=== PATIENT | male | born 1960 | race Caucasian/White ===

== ENCOUNTER 2017-02-06 23:07 | Inpatient (IN) | payer OTHER ==
--- NOTE | 2017-02-06 23:50 | PDOC ---
Attending Attestation - Resident Resident Name: Kandi Lew <Minerva Vega I - Last Filed: 02/06/17 23:49> - HPI HPI: 02/06/17 23:54 The patient is a 56 year old male who presents to the ED after being sent in by his PCP for evaluation of fevers. He was prescribed ciprol two days ago for acute prostatitis. Patient has a history of renal colic and past kidney stones. He denies any flank or back pain. He is able to tolerate PO. - Physicial Exam PE: 02/06/17 23:55 Abdomen: No tenderness over suprapubic area. Soft, normal bowel sounds. Musculoskeletal: No tenderness or pain on percussion of CVA area, back, or flank. - Medical Decision Making 02/07/17 02:49 DATE OF SERVICE: 2017-02-07 00:05:48 IMAGES: [id number] EXAM: CT ABDOMEN AND PELVIS WITHOUT CONTRAST TECHNIQUE: Axial images from the lung bases through the symphysis pubis with multi-planar reconstructions from the axial data set. Oral contrast: No. HISTORY: Nephrolithiasis. COMPARISON: None. FINDINGS: Lung bases are clear. Small hiatal hernia is present. Kidneys show no focal stones. Right kidney may contain a vague 0.6 cm hypodensity posteriorly, too small to characterize. No hydronephrosis. No ureteral stones. No bladder calculi. Liver is enlarged at 18.1 cm in length. Spleen is enlarged at 14.3 cm in length. Gallbladder is contracted. Pancreas and adrenal glands are unremarkable. Evaluation for parenchymal organ pathology is limited on non contrast imaging. Aorta is normal in caliber with no significant atherosclerosis. No lymphadenopathy based on size criteria. Distal sigmorectal nondistention or mild wall thickening may be present. Appendix is negative. Tiny fatty umbilical hernia is present. No free intraperitoneal fluid or gas. Spine shows mild scattered degenerative change. Right inguinal surgical changes are present. Prostate contains small calcifications. Bladder is decompressed. IMPRESSION: 1. No renal or ureteral stones. No hydronephrosis. Vague 0.6 cm hypodensity posteriorly in the right kidney could represent a cyst, but is too small to characterize on this noncontrast study. 2. Hepatosplenomegaly. 3. Sigmorectal wall nondistention or subtle infectious or inflammatory colitis. 4. Small hiatal hernia. 02/07/17 05:[address] Garcia who wants patient held in ED overnight. He will reevaluate the patient in the morning regarding admission vs discharge home. <Edmond Lubin - Last Filed: 02/07/17 05:43> Heart Score/ECG Review #1 ECG reviewed & interpreted by me at: 23:55 02/07/17 00:00 Vent rate 84 bpm OK interval 158 ms QRS duration 104 ms QT/QTc 364/430 ms P-R-T axes 52 26 38 Normal sinus rhythm. Normal ECG. <Edmond Lubin - Last Filed: 02/07/17 05:43>
[2017-02-07 00:02] LABS: BASOPHIL 0.1 % (0-2.0); EOSINOPHIL 0.4 % (0-4.5); MCH 30.3 pg (25.7-33.7); MCHC 34.9 g/dl (32.0-35.9); MEAN CELL VOLUME 86.6 fl (80-96); NEUTROPHILS 79.2 % (42.8-82.8); RDW 13.2 % (11.9-15.9); WHITE BLOOD COUNT 3.5 K/mm3 (4.0-10.0)
[2017-02-07 00:05] LABS: URINE APPEARANCE CLEAR; URINE BILIRUBIN NEGATIVE (NEGATIVE); URINE BLOOD 1+ (NEGATIVE); URINE COLOR AMBER; URINE GLUCOSE (UA) NEGATIVE (NEGATIVE); URINE KETONE NEGATIVE (NEGATIVE); URINE LEUK ESTERASE NEGATIVE (NEGATIVE); URINE NITRITE NEGATIVE (NEGATIVE); URINE UROBILINOGEN 4.0 E.U/dl mg/dL (0.2-1.0)
[2017-02-07 00:11] LABS: URINE PROTEIN 2+ (NEGATIVE)
[2017-02-07 00:14] LABS: INR 1.26 (0.82-1.09); PROTHROMBIN TIME (PATIENT) 13.9 SEC (9.98-11.88)
[2017-02-07 00:17] LABS: ACTIVATED PTT 30.7 SECONDS (26.9-34.4); URINE MUCUS MODERATE; URINE RBC 18 /hpf (0-3); URINE WBC 6 /hpf (3-5)
[2017-02-07 00:27] LABS: ALBUMIN 3.2 g/dl (3.4-5.0); ALK PHOS 143 U/L (45-117); ANION GAP 10 (8-16); BILIRUBIN,TOTAL 1.1 mg/dL (0.2-1.0); CALCIUM 8.2 mg/dL (8.5-10.1); CO2 25 mmol/L (21-32); CREATININE 0.7 mg/dL (0.7-1.3); GLUCOSE,RANDOM 135 mg/dL (74-106); SGOT/AST 78 U/L (15-37); SGPT/ALT 84 U/L (12-78); TOT PROT 6.7 g/dl (6.4-8.2)
[2017-02-07] MEDS ORDERED: SODIUM CHLORIDE 500 ML IV STA (00:59)
[2017-02-07 02:12] LABS: MEAN PLT VOLUME 7.5 fl (7.5-11.1); PLATELET COUNT 82 K/MM3 (134-434); PLATELET ESTIMATE SLT DECREASED (NORMAL)
[2017-02-07] MEDS ORDERED: CEFTRIAXONE 2 GM in DEXTROSE 5%-WATER - 100 ML IVPB ONE (02:48)
[2017-02-07] MEDS ORDERED: CEFTRIAXONE 100 ML IVPB ONE (03:05)
[2017-02-07] MEDS ORDERED: ACETAMINOPHEN 1000 MG/100 ML VIAL (NON FORMULARY) IVPB ONE (05:30)
[2017-02-07] MEDS ORDERED: ACETAMINOPHEN 325 MG TABLET (FP) PO PRN (05:30)
[2017-02-07] MEDS ORDERED: ACETAMINOPHEN INJECTION 100 ML IVPB ONE (06:08)
--- NOTE | 2017-02-07 06:20 | PDOC ---
History of Present Illness - General Chief Complaint: Urinary Problem Stated Complaint: INFECTION (PCP SENT) Time Seen by Provider: 02/06/17 23:16 History Source: Patient, Spouse Exam Limitations: No Limitations - History of Present Illness Initial Comments: 56yo M with PMH of nephrolithiasis, idiopathic thrombocytopenia, prostatitis presents c/o fevers. On Wednesday (3 days ago) pt went to Urologist (Dr. Ricks) who diagnosed acute prostatitis and prescribed Cipro 500mg BID. Pt has been compliant with Cipro, but has been experiencing ongoing fevers. Pt took Tylenol 500mg which would relieve symptoms for 2-3hrs. Pt took Motrin 800mg at 6pm today and last dose of Tylenol was at 9pm. Pt reports Tmax of 103F at 10pm (1 hour prior to arrival in the ER). Pt also c/o rigors with fever today. Pt was advised by his PCP (Dr. Garcai) to come to the ER. Pt denies pain, sob, palpitations. 02/07/17 06:12 Past History - Past Medical History Allergies/Adverse Reactions: Allergies Allergy/AdvReac Type Severity Reaction Status Date / Time No Known Allergies Allergy Verified 02/06/17 23:14 Home Medications: Ambulatory Orders Levothyroxine [Synthroid -] 125 mcg PO DAILY 07/05/15 Atorvastatin Ca [Lipitor] 10 mg PO HS 02/06/17 Anemia: No Asthma: No Cancer: No Cardiac Disorders: No CVA: No COPD: No CHF: No Dementia: No Diabetes: No GI Disorders: No Disorders: Yes (HX KIDNEY STONE) HTN: No Hypercholesterolemia: Yes Liver Disease: No Seizures: No Thyroid Disease: Yes Other medical history: idiopathic thrombocytopenia - Surgical History Orthopedic Surgery: Yes (ARTHROSCOPY) - Psycho/Social/Smoking Cessation Hx Anxiety: No Suicidal Ideation: No Smoking Status: Yes Smoking History: Former smoker Have you smoked in the past 12 months: Yes Number of Cigarettes Smoked Daily: 5 Information on smoking cessation initiated: No 'Breaking Loose' booklet given: 12/04/15 Hx Alcohol Use: No Drug/Substance Use Hx: No Substance Use Type: None Review of Systems - Review of Systems Constitutional: Yes: Chills, Diaphoresis, Fever HEENTM: No: Recent change in vision, Ear Pain, Nose Pain, Nose Congestion, Throat Pain Respiratory: No: Cough, Orthopnea, Shortness of Breath, Stridor, Wheezing Cardiac (ROS): No: Chest Pain, Edema, Irregular Heart Rate, Lightheadedness, Palpitations, Chest Tightness ABD/GI: No: Abdominal Distended, Constipated, Diarrhea, Nausea, Vomiting, Abdominal cramping : Yes: Burning (diminished since Wednesday) Integumentary: No: Bruising, Flushing, Rash Neurological: No: Headache, Unsteady Gait, Dizziness *Physical Exam - Vital Signs Last Vital Signs Temp Pulse Resp BP Pulse Ox 98.7 F 68 17 111/69 98 02/07/17 03:10 02/07/17 03:10 02/07/17 03:10 02/07/17 03:10 02/07/17 03:10 - Physical Exam General Appearance: Yes: Nourished, Appropriately Dressed. No: Mild Distress HEENT: positive: EOMI, Normal Voice, Other (moist mucous membranes). negative: Pale Conjunctivae, Scleral Icterus (R), Scleral Icterus (L), Nasal Congestion, Rhinorrhea Neck: positive: Trachea midline, Supple Respiratory/Chest: positive: Lungs Clear, Normal Breath Sounds. negative: Respiratory Distress, Accessory Muscle Use Cardiovascular: positive: Regular Rhythm, Regular Rate, S1, S2. negative: Murmur Gastrointestinal/Abdominal: positive: Soft. negative: Distended, Guarding, Rebound, Tenderness Musculoskeletal: positive: Normal Inspection. negative: CVA Tenderness, Decreased Range of Motion Extremity: positive: Normal Inspection. negative: Swelling, Calf Tenderness, Erythema Integumentary: positive: Normal Color, Warm, Diaphoresis Neurologic: positive: Fully Oriented, Alert, Normal Mood/Affect, Normal Response , Motor Strength 5/5 ED Treatment Course - LABORATORY CBC & Chemistry Diagram: 02/07/17 06:20 02/06/17 23:48 - ADDITIONAL ORDERS Additional order review: Laboratory Results 02/06/17 02/06/17 02/06/17 23:48 23:48 23:48 PT with INR 13.90 H INR 1.26 H PTT (Actin FS) 30.7 Sodium Potassium Chloride Carbon Dioxide Anion Gap BUN Creatinine Creat Clearance w eGFR Random Glucose Lactic Acid 0.8 Calcium Total Bilirubin AST ALT Alkaline Phosphatase Total Protein Albumin Urine Color Urine Appearance Urine pH Urine Protein Urine Glucose (UA) Urine Ketones Urine Blood Urine Nitrite Urine Bilirubin Urine Urobilinogen Urine RBC Urine WBC Ur Epithelial Cells Urine Mucus Blood Type A NEGATIVE Antibody Screen Negative 02/06/17 02/06/17 23:48 23:48 PT with INR INR PTT (Actin FS) Sodium 137 Potassium 3.6 Chloride 102 Carbon Dioxide 25 Anion Gap 10 BUN 16 Creatinine 0.7 D Creat Clearance w eGFR > 60 Random Glucose 135 H D Lactic Acid Calcium 8.2 L Total Bilirubin 1.1 H D AST 78 H D ALT 84 H D Alkaline Phosphatase 143 H D Total Protein 6.7 Albumin 3.2 L Urine Color Jada Urine Appearance Clear Urine pH 5.0 Urine Protein 2+ H Urine Glucose (UA) Negative Urine Ketones Negative Urine Blood 1+ H Urine Nitrite Negative Urine Bilirubin Negative Urine Urobilinogen 4.0 e.u/dl Urine RBC 18 Urine WBC 6 Ur Epithelial Cells Rare Urine Mucus Moderate Blood Type Antibody Screen 02/06/17 23:48 RBC 4.32 MCV 86.6 MCHC 34.9 RDW 13.2 MPV 7.5 Neutrophils % 79.2 D Lymphocytes % 9.4 D Monocytes % 10.9 H Eosinophils % 0.4 Basophils % 0.1 - RADIOLOGY Radiology Studies Ordered: Category Date Time Status ABDOMEN & PELVIS CT W/O CONTR [CT] Stat CT Scan 02/07/17 00:02 Taken - Medications Given in the ED: ED Medications Discontinued Medications Generic Name Dose Route Start Last Admin Trade Name Freq PRN Reason Stop Dose Admin Sodium Chloride 500 mls @ 500 mls/hr 02/07/17 00:59 02/07/17 01:21 Normal Saline - IV 02/07/17 01:58 500 mls/hr ASDIR STA Administration Ceftriaxone Sodium 2 gm/ 100 mls @ 200 mls/hr 02/07/17 02:48 02/07/17 03:10 Dextrose IVPB 02/07/17 03:17 200 mls/hr ONCE ONE Administration Medical Decision Making - Medical Decision Making 56yo M with PMH of nephrolithiasis, idiopathic thrombocytopenia, prostatitis presents c/o fevers x 3 days. Pt diagnosed with acute prostatitis 3 days ago. Pt compliant with Cipro 500mg BID. Pt also c/o rigors with fever today. Tmax 103F 1 hr prior to arrival in ER. Pt diarphoretic upon exam. Temp 101.4F here. NS 500 ml bolus given. F/u temps 98.4F at 1:22, and 98.7 at 3:10. Sepsis on arrival (fever, tachycardia at 102, prostatitis infection) EKG -> NSR CT ab/pelvis non-contrast -> no nephrolithiasis, no hydronephrosis. Hepatosplenomegaly noted. Prostate contains small calcifications. CBC with diff -> WBC 3.5, platelets 82 CMP -> elevated LFTs, may be 2/2 Tylenol taken in the last 3 days INR -> 1.26, may be related to elevated LFTs PTT -> wnl lactic acid -> wnl UA -> +2 protein, +1 blood Case discussed with PCP (Dr. Garcia) who accepted adm. Ceftriaxone 2g IVPB given per Dr. Garcia. 02/07/17 06:24 *DC/Admit/Observation/Transfer Diagnosis at time of Disposition: Fever, Sepsis, Thrombocytopenia - Referrals Referrals: Steven Garcia MD [Primary Care Provider] -
[2017-02-07] MEDS: SODIUM CHLORIDE 1,000 ML IV SCH ×2 (06:21→12:01)
[2017-02-07 06:42] LABS: MCH 30.1 pg (25.7-33.7); MCHC 34.8 g/dl (32.0-35.9); MEAN CELL VOLUME 86.6 fl (80-96); MEAN PLT VOLUME 7.2 fl (7.5-11.1); PLATELET COUNT 81 K/MM3 (134-434); RDW 13.4 % (11.9-15.9); WHITE BLOOD COUNT 3.3 K/mm3 (4.0-10.0)
[2017-02-07 07:08] LABS: ALBUMIN 2.9 g/dl (3.4-5.0); ANION GAP 5 (8-16); BILIRUBIN,TOTAL 0.7 mg/dL (0.2-1.0); CALCIUM 8.4 mg/dL (8.5-10.1); CO2 28 mmol/L (21-32); CREATININE 0.7 mg/dL (0.7-1.3); GLUCOSE,RANDOM 103 mg/dL (74-106); SGOT/AST 73 U/L (15-37); SGPT/ALT 86 U/L (12-78); TOT PROT 6.5 g/dl (6.4-8.2)
[2017-02-07 07:09] LABS: ALK PHOS 140 U/L (45-117)
[2017-02-07] MEDS ORDERED: CEFTRIAXONE 100 ML IVPB SCH (10:00)
--- NOTE | 2017-02-07 10:06 | HP ---
Admitting History and Physical - Primary Care Physician PCP: Steven Garcia - Admission Chief Complaint: FEVERS/CHILLS/ACUTE PROSTATITIS History of Present Illness: 56 Y/O MALE WITH HISTORY OF THROMBOCYTOPENIA, DIAGNOSED WITH ACUTE PROSATITIS 1 WEEK AGO AND STARTED ON CIPRO AND MACROBID STILL HAD FEVERS HIGH 104'. PATIENT REPORTS RIGORS AND WEAKNESS. CT SCAN SHOWED CALCIFIED PROSTATE NO HYDRONEPHROSIS. History Source: Patient - Past Medical History Renal/: Yes: Other Heme/Onc: Yes: Thrombocytopenia - Smoking History Smoking history: Former smoker Have you smoked in the past 12 months: Yes Aproximately how many cigarettes per day: 5 - Alcohol/Substance Use Hx Alcohol Use: No Home Medications - Allergies Allergies/Adverse Reactions: Allergies Allergy/AdvReac Type Severity Reaction Status Date / Time No Known Allergies Allergy Verified 02/06/17 23:14 - Home Medications Home Medications: Ambulatory Orders Levothyroxine [Synthroid -] 125 mcg PO DAILY 07/05/15 Atorvastatin Ca [Lipitor] 10 mg PO HS 02/06/17 Review of Systems - Review of Systems Constitutional: reports: Chills, Diaphoresis, Fever, Lethargy, Loss of Appetite , Night Sweats, Weakness Eyes: reports: No Symptoms HENT: reports: No Symptoms Neck: reports: No Symptoms Cardiovascular: reports: No Symptoms Respiratory: reports: No Symptoms Gastrointestinal: reports: No Symptoms Genitourinary: reports: Discharge, Frequency Musculoskeletal: reports: Extremity Pain, Joint Pain, Muscle Cramps Integumentary: reports: No Symptoms Neurological: reports: No Symptoms Endocrine: reports: No Symptoms Hematology/Lymphatic: reports: No Symptoms Psychiatric: reports: No Symptoms Physical Examination Vital Signs: Vital Signs Temperature 98.7 F 02/07/17 06:47 Pulse Rate 68 02/07/17 06:47 Respiratory Rate 02/07/17 06:47 Blood Pressure 120/78 02/07/17 06:47 O2 Sat by Pulse Oximetry (%) 98 02/07/17 06:47 Constitutional: Yes: Moderate Distress Eyes: Yes: WNL HENT: Yes: WNL Neck: Yes: WNL Cardiovascular: Yes: WNL Respiratory: Yes: WNL Gastrointestinal: Yes: WNL Renal/: Yes: WNL Musculoskeletal: Yes: WNL Extremities: Yes: WNL Edema: No Peripheral Pulses WNL: Yes Integumentary: Yes: WNL Wound/Incision: Yes: Clean/Dry Neurological: Yes: WNL ...Motor Strength: WNL Psychiatric: Yes: WNL Imaging - Results Cat Scan: Report Reviewed Problem List - Problems (1) Fever Code(s): R50.9 - FEVER, UNSPECIFIED (2) Sepsis Code(s): A41.9 - SEPSIS, UNSPECIFIED ORGANISM Qualifiers: Sepsis type: sepsis due to unspecified organism Qualified Code(s): A41.9 - Sepsis, unspecified organism (3) Thrombocytopenia Code(s): D69.6 - THROMBOCYTOPENIA, UNSPECIFIED (4) Acute prostatitis Code(s): N41.0 - ACUTE PROSTATITIS (5) Hepatosplenomegaly Code(s): R16.2 - HEPATOMEGALY WITH SPLENOMEGALY, NOT ELSEWHERE CLASSIFIED Assessment/Plan IV ABX ROCEPHIN CHECK CULTURES LIKELY TO BE NEGATIVE WITH CIPRO AND MACROBID OUTPATIENT OVER 4 DAYS. DECREASE TYLENOL TO MAX 2GM DAILY WITH ELEVATED LFT'S.
--- NOTE | 2017-02-07 10:18 | PN ---
Progress Note (short form) - Note Progress Note: ID consult dictated imp/reccd 56 year old man developed dysuria and fever last Wednesday he saw Urology as an outpt and was placed on cipro fever and chills and rigors developed and he came to ED last night no nausea or vomiting notes cloudy, milky urine that has now improved no diarrhea no travel pmh chronic thrombocytopenia-usually 90 to 100k now with leukopenia, thrombocytopenia, abnl lfts fever, suspected prostatitis, uti on cipro as outpt agree with IVF and rocephin cannot r/o tick borne illness blood smear r/o babesia anaplasma , ehrlichia serology babesia serology lyme titer add doxycycline anemia/thrombocytopenia/abnl lfts d/w Dr Garcia Problem List - Problems (1) Fever Code(s): R50.9 - FEVER, UNSPECIFIED (2) Acute prostatitis Code(s): N41.0 - ACUTE PROSTATITIS (3) Leukopenia Code(s): D72.819 - DECREASED WHITE BLOOD CELL COUNT, UNSPECIFIED (4) Thrombocytopenia Code(s): D69.6 - THROMBOCYTOPENIA, UNSPECIFIED
[2017-02-07] MEDS: DOXYCYCLINE INJECTION 100 MG in DEXTROSE 5%-WATER - 100 ML IVPB SCH ×2 (12:04→21:18)
[2017-02-07] MEDS ORDERED: DEXTROSE 5%-WATER 100 ML IVPB ONE (12:24)
--- NOTE | 2017-02-07 12:50 | CONSULT ---
Consult Consult Specialty:: Hematology/Oncology Reason for Consultation:: Pancytopenia - History of Present Illness Chief Complaint: pancytopenia, burning urination History of Present Illness: is a 56 y/o male with long standing low platelet counts, off and on smoker admitted now with a UTI. Per patient, he was having burning urination as an outpatient, was seen by urology and placed on ciprofloxacin, however he then developed fever and rigors and was admitted last night for treatment of urosepsis. He was placed on IVF and broad spectrum antibiotics with rocephin and doxycycline. We have been consulted to help work-up his pancytopenia. Per patient, he has always had low platelet counts for a few years now and about 5 years ago had a bone marrow biopsy. He is unable to tell me the name of the doctor or if he was diagnosed with any condition post bone marrow biopsies. He is otherwise healthy, works with an [employer], does not drink or use drugs. - History Source History Provided By: Patient Limitations to Obtaining History: No Limitations - Past Medical History Renal/: Yes: Other - Alcohol/Substance Use Hx Alcohol Use: No - Smoking History Smoking history: Former smoker Have you smoked in the past 12 months: Yes Aproximately how many cigarettes per day: 5 Home Medications - Allergies Allergies/Adverse Reactions: Allergies Allergy/AdvReac Type Severity Reaction Status Date / Time No Known Allergies Allergy Verified 02/06/17 23:14 - Home Medications Home Medications: Ambulatory Orders Levothyroxine [Synthroid -] 125 mcg PO DAILY 07/05/15 Atorvastatin Ca [Lipitor] 10 mg PO HS 02/06/17 Review of Systems - Review of Systems Constitutional: reports: No Symptoms, Other (burning urination) Eyes: reports: No Symptoms HENT: reports: No Symptoms Neck: reports: No Symptoms Cardiovascular: reports: No Symptoms Respiratory: reports: No Symptoms Gastrointestinal: reports: No Symptoms Genitourinary: reports: Dysuria Musculoskeletal: reports: No Symptoms Integumentary: reports: No Symptoms Neurological: reports: No Symptoms Endocrine: reports: No Symptoms Hematology/Lymphatic: reports: No Symptoms Psychiatric: reports: No Symptoms Physical Exam Vital Signs: Vital Signs Temperature 98.7 F 02/07/17 06:47 Pulse Rate 68 02/07/17 06:47 Respiratory Rate 02/07/17 06:47 Blood Pressure 120/78 02/07/17 06:47 O2 Sat by Pulse Oximetry (%) 98 02/07/17 06:47 Constitutional: Yes: Well Nourished Eyes: Yes: WNL HENT: Yes: WNL, Atraumatic, Normocephalic Neck: Yes: WNL, Supple, Trachea Midline Cardiovascular: Yes: WNL, Regular Rate and Rhythm Respiratory: Yes: WNL, Regular, CTA Bilaterally Gastrointestinal: Yes: WNL, Normal Bowel Sounds Musculoskeletal: Yes: WNL Extremities: Yes: WNL Neurological: Yes: WNL, Alert, Oriented Assessment/Plan 56 y/o male with long standing pancytopenia and admitted with an UTI - On IVF and antibiotics per ID -recommend working up pancytopenia with following labs : B12, folate, Thyroid panel - viral titres (Hep B and C, HIV) -SPEP/UPEP - Recommend arranging follow-up in Hematology clinic one to weeks after this acute hospitalization to assess counts and re-perform bone marrow biopsy if work -up as suggested is negative -patient is agreeable with this plan -please contact our service at the time of discharge to arrange the appropriate follow-up
--- NOTE | 2017-02-07 15:19 | CON.GI ---
Consult Consult Specialty:: GI Referred by:: Radha Reason for Consultation:: increased LFTs - History of Present Illness Chief Complaint: dysuria and fevers History of Present Illness: 56 M with longstanding h/o thrombocytopenia, admitted with fever and rigors. He had a UTI last week and was treated with po cipro but developed fever and rigors after starting the med. He currently has [id number] elevated LFTs with ALT> AST. On questioning, patient tells me that he is a patient of Dr Mathews and has been seeing him "for years" He states he sees him every 6 months for re- evaluation of his liver. Please notify Dr Mathews and have him see this patient. This is a longstanding chronic problem and is not urgent. - Past Medical History Renal/: Yes: Other - Alcohol/Substance Use Hx Alcohol Use: No - Smoking History Smoking history: Former smoker Have you smoked in the past 12 months: Yes Aproximately how many cigarettes per day: 5 Home Medications - Allergies Allergies/Adverse Reactions: Allergies Allergy/AdvReac Type Severity Reaction Status Date / Time No Known Allergies Allergy Verified 02/06/17 23:14 - Home Medications Home Medications: Ambulatory Orders Levothyroxine [Synthroid -] 125 mcg PO DAILY 07/05/15 Atorvastatin Ca [Lipitor] 10 mg PO HS 02/06/17 Physical Exam-GI Vital Signs: Vital Signs Temperature 98.7 F 02/07/17 06:47 Pulse Rate 68 02/07/17 06:47 Respiratory Rate 17 02/07/17 06:47 Blood Pressure 120/78 02/07/17 06:47 O2 Sat by Pulse Oximetry (%) 98 02/07/17 06:47 Labs: INR, PTT INR 1.26 (0.82-1.09) H 02/06/17 23:48
--- NOTE | 2017-02-07 17:52 | CONS ---
DATE OF CONSULTATION: 02/07/2017 REQUESTED BY: Steven Garcia MD This is a 56-year-old man with a past medical history of thrombocytopenia, he has a platelet count usually about 90,000 to 100,000, who a week ago developed dysuria and fever that started last Wednesday. He went to see the urologist, was started on Cipro and Macrobid. He continues to have fever as high as 104 at home and was reported as well shaking chills, came in to the emergency room with these complaints. He was noted to be leukopenic, thrombocytopenic, as well as to have abnormal LFTs. He had a CAT scan of his abdomen and pelvis done, which is notable for mild hepatosplenomegaly, no evidence of obstructive uropathy. I am asked to see him for continued fever. Patient reports he had some cloudy urine that has cleared. He does not have any pharyngitis. He has no respiratory symptoms. He has no nausea, vomiting or diarrhea. There is no history of travel. He lives in a house here in [place]. He works occasionally in his garden. He denies any mosquito or tick bites. His past medical history is notable for a history of thrombocytopenia. SURGICAL HISTORY: He has had a screw removed from his left arm, and as a child he had repair of an undescended testicle. He has also had kidney stones in the past. There are no known drug allergies. Medications at the time of admission include levothyroxine, atorvastatin, and ciprofloxacin. Family history is noncontributory. SOCIAL HISTORY: He is . There is no history of any substance use. He is a former smoker. He lives with his and 3 daughters. There have been no sick contacts. There has been no travel. He works in air conditioning. REVIEW OF SYSTEMS: Notable for fever, chills, and rigors. He has no rash. He notes improvement in his urinary symptoms. PHYSICAL EXAMINATION: General: He is awake and alert. Vital Signs: Current temperature is 98.7, T-max 101.4. Pulse is 68. Blood pressure 128/78. Respiratory rate 17. Saturating 98% on room air. HEENT: Normocephalic. His eyes are anicteric. Neck: Supple. Lungs: Clear to auscultation. Heart: Regular rate and rhythm. Abdomen: Soft, nontender. He has no CVA or suprapubic discomfort. Extremities: Without edema. Skin: He has no rash. White count is 3.3, hemoglobin 12.7, platelets 81,000, sedimentation rate is 50. BUN 12, creatinine 0.7, his AST is 73, ALT of 86, with alkaline phosphatase of 140. CRP is 17. Urinalysis has 1+ blood, 6 white cells. Cultures are pending. He had a CAT scan of his abdomen and pelvis done in the emergency room. As stated before, with mild hepatosplenomegaly, otherwise unremarkable. In summary, this is a 56-year-old man with fever, suspected prostatitis, UTI, on Cipro. Would agree with IV fluids and Rocephin. He is not antibiotic experienced so I doubt he has a drug-resistant pathogen. Cannot rule out tick-borne illness, given the triad of leukopenia, thrombocytopenia, abnormal LFTs. Would obtain a blood smear to rule out Babesia and a plasma and Ehrlichia serology, Babesia serology and Lyme titer. Would add doxycycline. Further recommendations to follow. Case was discussed with Dr. Garcia. Steph [id number]
[2017-02-07] MEDS ORDERED: FLU VACCINE QUAD 60 MCG/0.5 ML (MDV 17-18) IM ONE (18:41)
[2017-02-07 19:02] VITALS: BMI 31.6
[2017-02-07] MEDS ORDERED: PT OWN MED DRAWER 7, Y5N ONE (20:52)
[2017-02-08] MEDS: SODIUM CHLORIDE 1,000 ML IV SCH ×2 (02:30→12:36)
[2017-02-08 07:28] LABS: MCH 29.9 pg (25.7-33.7); MCHC 34.6 g/dl (32.0-35.9); MEAN CELL VOLUME 86.3 fl (80-96); MEAN PLT VOLUME 7.6 fl (7.5-11.1); PLATELET COUNT 91 K/MM3 (134-434); RDW 13.4 % (11.9-15.9); WHITE BLOOD COUNT 5.3 K/mm3 (4.0-10.0)
[2017-02-08 07:48] LABS: ALBUMIN 2.8 g/dl (3.4-5.0); ANION GAP 9 (8-16); CALCIUM 8.2 mg/dL (8.5-10.1); CO2 27 mmol/L (21-32); GLUCOSE,RANDOM 106 mg/dL (74-106)
[2017-02-08 07:52] LABS: ALK PHOS 159 U/L (45-117); BILIRUBIN,TOTAL 0.6 mg/dL (0.2-1.0); CREATININE 0.7 mg/dL (0.7-1.3); SGOT/AST 63 U/L (15-37); SGPT/ALT 88 U/L (12-78); TOT PROT 6.2 g/dl (6.4-8.2)
--- NOTE | 2017-02-08 07:52 | CON.GU ---
Consult Consult Specialty:: urology Referred by:: Radha Reason for Consultation:: febrile prostatitis - History of Present Illness Chief Complaint: Patient with fever and dysuria History of Present Illness: Patient presented on 02/03 with fever and dysuria. Patient was noted to have a hot tender prostate at that time on PE and was placed on PO cipro and subsequently changed to macrobid due to breakthrough fever. Patient with increased frequency and urgency with fever to 104. Patient came to the ER due to fever and chills. - History Source History Provided By: Patient Limitations to Obtaining History: No Limitations - Past Medical History Renal/: Yes: Other - Alcohol/Substance Use Hx Alcohol Use: No - Smoking History Smoking history: Former smoker Have you smoked in the past 12 months: Yes Aproximately how many cigarettes per day: 5 Home Medications - Allergies Allergies/Adverse Reactions: Allergies Allergy/AdvReac Type Severity Reaction Status Date / Time No Known Allergies Allergy Verified 02/06/17 23:14 - Home Medications Home Medications: Ambulatory Orders Levothyroxine [Synthroid -] 125 mcg PO DAILY 07/05/15 Atorvastatin Ca [Lipitor] 10 mg PO HS 02/06/17 Physical Exam- Vital Signs: Vital Signs Temperature 98.5 F 02/08/17 06:03 Pulse Rate 79 02/08/17 06:03 Respiratory Rate 18 02/08/17 06:03 Blood Pressure 122/72 02/08/17 06:03 O2 Sat by Pulse Oximetry (%) 99 02/07/17 21:00 Constitutional: Yes: Well Nourished, No Distress, Calm Eyes: Yes: WNL, Conjunctiva Clear, EOM Intact HENT: Yes: WNL, Atraumatic, Normocephalic Neck: Yes: WNL, Supple, Trachea Midline Cardiovascular: Yes: WNL, Regular Rate and Rhythm Respiratory: Yes: WNL, Regular Gastrointestinal: Yes: WNL, Normal Bowel Sounds Renal/: Yes: WNL Kidneys: Yes: WNL Testicles: Yes: WNL Scrotum: Yes: WNL Penis: Yes: WNL Prostate Exam: Yes: Other (prostate warm to touch and enlarged with tenderness; no fluctuance) Labs: CBC, BMP 02/08/17 06:00 Imaging - Results Cat Scan: Report Reviewed Assessment/Plan imp uti/prostatitis plan continue doxycycline continue flomax agree with ID that the labs are suspicious that this is a simple prostatitis with such a low WBC discussed x25 minutes
[2017-02-08] MEDS ORDERED: TAMSULOSIN HCL 0.4 MG CAP.ER.24H (FP) PO ONE ×2 (08:30→11:00)
--- NOTE | 2017-02-08 08:38 | PN ---
Progress Note, Physician Chief Complaint: ID Clinical improvement noted Still has dysuria Ceftriaxone and doxycline Afebrile - Current Medication List Current Medications: Active Medications Acetaminophen (Tylenol -) 650 mg PO Q6H PRN PRN Reason: FEVER OR PAIN Sodium Chloride (Normal Saline -) 1,000 mls @ 100 mls/hr IV ASDIR [facility] Last Admin: 02/08/17 02:30 Dose: 100 mls/hr Doxycycline Hyclate 100 mg/ (Dextrose) 100 mls @ 100 mls/hr IVPB BID [facility] Last Admin: 02/07/17 21:18 Dose: 100 mls/hr Ceftriaxone Sodium 2 gm/ (Dextrose) 100 mls @ 200 mls/hr IVPB DAILY [facility] - Objective Vital Signs: Vital Signs Temperature 98.5 F 02/08/17 06:03 Pulse Rate 79 02/08/17 06:03 Respiratory Rate 18 02/08/17 06:03 Blood Pressure 122/72 02/08/17 06:03 O2 Sat by Pulse Oximetry (%) 99 02/07/17 21:00 Constitutional: Yes: Well Nourished, No Distress HENT: Yes: WNL, Atraumatic Neck: Yes: WNL, Supple Cardiovascular: Yes: Regular Rate and Rhythm, S1, S2. No: Murmur Respiratory: Yes: WNL, Regular, CTA Bilaterally Gastrointestinal: Yes: WNL, Normal Bowel Sounds, Soft. No: Splenomegaly, Tenderness, Tenderness, Epigastrium Edema: No Labs: CBC, BMP 02/08/17 06:00 02/08/17 06:00 INR, PTT INR 1.26 (0.82-1.09) H 02/06/17 23:48 Assessment/Plan Microbiology 02/07/17 10:43 Blood - Peripheral Venous HGE Ehrlichia (PCR) - Preliminary 02/07/17 10:43 Blood - Peripheral Venous Ehrlichia Serology - Preliminary 02/07/17 00:07 Blood - Peripheral Venous Blood Culture - Preliminary NO GROWTH OBTAINED AFTER 24 HOURS, INCUBATION TO CONTINUE FOR 4 DAYS. 02/06/17 23:48 Blood - Peripheral Venous Blood Culture - Preliminary NO GROWTH OBTAINED AFTER 24 HOURS, INCUBATION TO CONTINUE FOR 4 DAYS. Laboratory Tests 02/07/17 02/07/17 02/08/17 06:20 10:43 06:00 WBC 5.3 D Hgb 12.5 Plt Count 91 L ESR 50 H BUN AST ALT Alkaline Phosphatase Hepatitis A IgM Ab Pending Hep Bs Antigen Pending Hep B Core IgM Ab Pending Hepatitis C Ab (EIA) Pending 02/08/17 06:00 WBC Hgb Plt Count ESR BUN 9 D AST 63 H ALT 88 H Alkaline Phosphatase 159 H Hepatitis A IgM Ab Hep Bs Antigen Hep B Core IgM Ab Hepatitis C Ab (EIA) Assessment Acute prostatitis improving Thrombocytopenia chronic This is chronic and he has had bone marrow in past Tick related illness less likely Plan Continue Ceftriaxone pending c/s then switch to oral HIV test Shaka VINCENT
[2017-02-08 09:46] LABS: HIV 1 & 2 AB NEGATIVE; HIV 1 AGp24 NEGATIVE
[2017-02-08] MEDS ORDERED: DEXTROSE 5%-WATER 100 ML IVPB ONE (10:40)
[2017-02-08] MEDS: DOXYCYCLINE HYCLATE 100 MG CAPSULE PO SCH ×2 (10:46→17:45)
[2017-02-08] MEDS: CEFTRIAXONE 2 GM in DEXTROSE 5%-WATER 100 ML IVPB SCH (10:47)
--- NOTE | 2017-02-08 15:55 | PN ---
Progress Note, Physician Chief Complaint: AWAKE ALERT NAD FEELING BETTER STILL SOME DYSUREA - Current Medication List Current Medications: Active Medications Acetaminophen (Tylenol -) 650 mg PO Q6H PRN PRN Reason: FEVER OR PAIN Doxycycline Hyclate (Vibramycin -) 100 mg PO BID@1000,1800 [facility] Last Admin: 02/08/17 10:46 Dose: 100 mg Sodium Chloride (Normal Saline -) 1,000 mls @ 100 mls/hr IV ASDIR [facility] Last Admin: 02/08/17 12:36 Dose: 100 mls/hr Ceftriaxone Sodium 2 gm/ (Dextrose) 100 mls @ 200 mls/hr IVPB DAILY [facility] Last Admin: 02/08/17 10:47 Dose: 200 mls/hr - Objective Vital Signs: Vital Signs Temperature 97.8 F 02/08/17 15:28 Pulse Rate 89 02/08/17 15:28 Respiratory Rate 20 02/08/17 15:28 Blood Pressure 122/73 02/08/17 15:28 O2 Sat by Pulse Oximetry (%) 99 02/07/17 21:00 Constitutional: Yes: No Distress Eyes: Yes: WNL HENT: Yes: WNL Neck: Yes: WNL Cardiovascular: Yes: WNL Respiratory: Yes: WNL Gastrointestinal: Yes: WNL Genitourinary: Yes: Other Musculoskeletal: Yes: WNL Extremities: Yes: WNL Edema: No Peripheral Pulses WNL: Yes Integumentary: Yes: WNL Wound/Incision: Yes: Clean/Dry Neurological: Yes: WNL ...Motor Strength: WNL Psychiatric: Yes: WNL Labs: CBC, BMP 02/08/17 06:00 02/08/17 06:00 INR, PTT INR 1.26 (0.82-1.09) H 02/06/17 23:48 Problem List - Problems (1) Fever Code(s): R50.9 - FEVER, UNSPECIFIED (2) Sepsis Code(s): A41.9 - SEPSIS, UNSPECIFIED ORGANISM Qualifiers: Sepsis type: sepsis due to unspecified organism Qualified Code(s): A41.9 - Sepsis, unspecified organism (3) Thrombocytopenia Code(s): D69.6 - THROMBOCYTOPENIA, UNSPECIFIED (4) Acute prostatitis Code(s): N41.0 - ACUTE PROSTATITIS (5) Hepatosplenomegaly Code(s): R16.2 - HEPATOMEGALY WITH SPLENOMEGALY, NOT ELSEWHERE CLASSIFIED Assessment/Plan AWAIT CULTURES CONTINUE IV ABX PSA AND CANCER MARKERS PENDING OOB TO CHAIR
--- NOTE | 2017-02-08 16:35 | EKG ---
Test Reason : Blood Pressure : / mmHG Vent. Rate : 084 BPM Atrial Rate : 084 BPM P-R Int : 158 ms QRS Dur : 104 ms QT Int : 364 ms P-R-T Axes : 052 026 038 degrees QTc Int : 430 ms NORMAL SINUS RHYTHM NORMAL ECG WHEN COMPARED WITH ECG OF 23-SEP-2009 10:28, NO SIGNIFICANT CHANGE WAS FOUND Confirmed by MAC VANCE MD ([id number]) on 02/08/2017 4:35:00 PM Referred By: Confirmed By:MAC VANCE MD
[2017-02-09] MEDS: SODIUM CHLORIDE 1,000 ML IV SCH (01:00)
[2017-02-09 06:11] LABS: CA 15-3 23.6 U/mL (0.0-25.0); PROSTATE SPECIFIC ANTIGEN 10.3 ng/mL (0.0-4.0)
[2017-02-09] MEDS ORDERED: LEVOTHYROXINE NA 125 MCG TABLET (FP) PO SCH (07:00)
[2017-02-09] MEDS ORDERED: DEXTROSE 5%-WATER 100 ML IVPB ONE (10:29)
[2017-02-09] MEDS: CEFTRIAXONE 2 GM in DEXTROSE 5%-WATER 100 ML IVPB SCH (10:33)
[2017-02-09] MEDS: DOXYCYCLINE HYCLATE 100 MG CAPSULE PO SCH (10:33)
--- NOTE | 2017-02-09 12:25 | PN ---
Progress Note (short form) - Note Progress Note: feels better no more fevers no dysuria Vital Signs Period Temp Pulse Resp BP Sys/Krueger Pulse Ox Last 24 Hr 97.8 F-98.2 F 62-89 20-20 108-133/67-73 99 cor-rrr lungs clear abd soft,nt ext no edema CBC, BMP 02/08/17 06:00 02/08/17 06:00 Microbiology 02/07/17 00:07 Blood - Peripheral Venous Blood Culture - Preliminary NO GROWTH OBTAINED AFTER 48 HOURS, INCUBATION TO CONTINUE FOR 3 DAYS. 02/06/17 23:48 Blood - Peripheral Venous Blood Culture - Preliminary NO GROWTH OBTAINED AFTER 48 HOURS, INCUBATION TO CONTINUE FOR 3 DAYS. 02/06/17 23:48 Urine - Urine Clean Catch Urine Culture - Final NO GROWTH OBTAINED 02/07/17 10:43 Blood - Peripheral Venous HGE Ehrlichia (PCR) - Preliminary 02/07/17 10:43 Blood - Peripheral Venous Ehrlichia Serology - Preliminary a/p fever, suspected prostatitis, uti-improved anemia/thrombocytopenia/abnl lfts-improved doing well day #3 antibiotics can switch to po doxycycline to complete 14 days-if anaplasma serology comes back negative, can d/c earlier (lyme is negative) po ceftin for uti/prostatitis urology f/u as outpt please call back if needed can Problem List - Problems (1) Fever Code(s): R50.9 - FEVER, UNSPECIFIED (2) Acute prostatitis Code(s): N41.0 - ACUTE PROSTATITIS (3) Leukopenia Code(s): D72.819 - DECREASED WHITE BLOOD CELL COUNT, UNSPECIFIED (4) Thrombocytopenia Code(s): D69.6 - THROMBOCYTOPENIA, UNSPECIFIED
--- NOTE | 2017-02-09 13:51 | PN ---
Progress Note (short form) - Note Progress Note: Patient seen and examined. Patient feels much better he says. Chart/Imaging/labs reviewed. Constitutional: Yes: Well Nourished Eyes: Yes: WNL HENT: Yes: WNL, Atraumatic, Normocephalic Neck: Yes: WNL, Supple, Trachea Midline Cardiovascular: Yes: WNL, Regular Rate and Rhythm Respiratory: Yes: WNL, Regular, CTA Bilaterally Gastrointestinal: Yes: WNL, Normal Bowel Sounds Musculoskeletal: Yes: WNL Extremities: Yes: WNL Neurological: Yes: WNL, Alert, Oriented Last Vital Signs Temp Pulse Resp BP Pulse Ox 98.2 F 62 20 108/67 99 02/09/17 06:45 02/09/17 06:45 02/09/17 06:45 02/09/17 06:45 02/08/17 21:00 CBC, BMP 02/08/17 06:00 02/08/17 06:00 Current Medications Generic Name Dose Route Start Last Admin Trade Name Freq PRN Reason Stop Dose Admin Acetaminophen 650 mg 02/07/17 05:30 Tylenol - PO Q6H PRN FEVER OR PAIN Doxycycline Hyclate 100 mg 02/08/17 10:00 02/09/17 10:33 Vibramycin - PO 100 mg BID@1000,1800 [facility] Administration Sodium Chloride 1,000 mls @ 100 mls/hr 02/07/17 05:30 02/09/17 01:00 Normal Saline - IV 100 mls/hr ASDIR [facility] Administration Ceftriaxone Sodium 2 gm/ 100 mls @ 200 mls/hr 02/07/17 12:17 02/09/17 10:33 Dextrose IVPB 200 mls/hr DAILY [facility] Administration Levothyroxine Sodium 125 mcg 02/09/17 07:00 02/09/17 06:46 Synthroid - PO 125 mcg DAILY@0700 [facility] Administration 56 y/o male with long standing thrombocytopenia and admitted with an UTI/ prostatitis -antibiotics per ID -platelets improving, liver fn?, hepatomegaly. -PSA rise , f./u, likelyin the setting of infection, but needs repeat PSA once off of abx and symptoms resolve, CT ab/pelvis with no acute pathology - Recommend arranging follow-up in Hematology clinic one to weeks after this acute hospitalization to assess counts and re-perform bone marrow biopsy if work -up as suggested is negative -pt aware that he could follow-up with us -From heme-stand point, no further Inpatient Rx -OP GI f/u
[2017-02-09 14:47] VITALS: BP 119/64; PULSE 77; TEMP 97.4
--- NOTE | 2017-02-09 15:26 | DS ---
Physical Examination Vital Signs: Vital Signs Temperature 97.4 F L 02/09/17 14:46 Pulse Rate 77 02/09/17 14:46 Respiratory Rate 20 02/09/17 14:46 Blood Pressure 119/64 02/09/17 14:46 O2 Sat by Pulse Oximetry (%) 99 02/08/17 21:00 Constitutional: Yes: No Distress Eyes: Yes: WNL HENT: Yes: WNL Neck: Yes: WNL Cardiovascular: Yes: WNL Respiratory: Yes: WNL Gastrointestinal: Yes: WNL Renal/: Yes: WNL Musculoskeletal: Yes: WNL Extremities: Yes: WNL Edema: No Peripheral Pulses WNL: Yes Integumentary: Yes: WNL Wound/Incision: Yes: Clean/Dry Neurological: Yes: WNL ...Motor Strength: WNL Psychiatric: Yes: WNL Labs: CBC, BMP 02/08/17 06:00 02/08/17 06:00 Discharge Summary Reason For Visit: FEVER THROMBOCYTOPENIA SEPSIS Current Active Problems Acute prostatitis (Acute) Fever (Acute) Hepatosplenomegaly (Acute) Leukopenia (Acute) Sepsis (Acute) Thrombocytopenia (Acute) Procedures: Principal: CT ABD/PELVIS Hospital Course: ADMITTED AND TREATED FOR ACUTE PROSTATITIS RESISTANT TO PO ABX, TREATED WITH IV CEFTRIAXONE FOR 3 DAYS AND DISCHARGED ON PO ABX FOR 10 DAYS Condition: Improved - Instructions Diet, Activity, Other Instructions: FOLLOW UP WITH OUT PATIENT LOW SALT DIET HEMATOLOGY EVAL DR MEADOWS FOR THROMBOCYTOPENIA DR KANG FOR LIVER FUNCTION ABNORMALITY Referrals: Steven Garcia MD [Primary Care Provider] - Disposition: HOME - Home Medications Comprehensive Discharge Medication List: Ambulatory Orders Levothyroxine [Synthroid -] 125 mcg PO DAILY 07/05/15 Atorvastatin Ca [Lipitor] 10 mg PO HS 02/06/17
[2017-02-09] MEDS ORDERED: CEFUROXIME AXETIL 500 MG TABLET PO SCH (22:00)
[2017-02-10] MEDS ORDERED: TAMSULOSIN HCL 0.4 MG CAP.ER.24H (FP) PO SCH (08:30)
== END 2017-02-09 15:58 | disposition home or self-care (01) | DRG 872 ==
LOC: JER 23:07 → UNDOADMIN 02-07 07:06 → JERBED 02-07 07:06 → J8W 02-07 08:45 → JERBED 02-07 08:45 → UNDOADMIN 02-07 15:17 → J8W 02-07 15:17
PROVIDERS: ADMIT Family Medicine; ATTEND Family Medicine
DX: A41.9 Sepsis, unspecified organism (principal); N41.0 Acute prostatitis; D69.3 Immune thrombocytopenic purpura; N39.0 Urinary tract infection, site not specified; D61.818 Other pancytopenia; R16.2 Hepatomegaly with splenomegaly, not elsewhere classified; K44.9 Diaphragmatic hernia without obstruction or gangrene; Z87.891 Personal history of nicotine dependence; D64.9 Anemia, unspecified; D72.819 Decreased white blood cell count, unspecified
CPT/HCPCS: 36415; 74176-TC; 80053; 80074; 81003; 81015; 82378; 82930; 83605; 84153; 85025; 85027; 85610; 85651; 85730; 86140; 86300; 86301; 86304; 86618; 86666; 86850; 86900; 86901; 87040; 87086; 87389; 93005; 93010; 99284-25

== ENCOUNTER 2018-11-02 08:47 | Day surgery (SDC) | payer OTHER ==
[2018-11-01 17:20] VITALS: BMI 32.5
--- NOTE | 2018-11-02 09:01 | HP ---
Satellite [facility] - Chief Complaint Chief Complaint: right knee pain - Past Medical History Allergies/Adverse Reactions: Allergies Allergy/AdvReac Type Severity Reaction Status Date / Time No Known Allergies Allergy Verified 02/06/17 23:14 Renal/: Yes: Other Heme/Onc: Yes: Thrombocytopenia - Current Medications Current Medications: Home Medications Medication Instructions Recorded Acetaminophen [Tylenol .Regular 650 mg PO Q6H PRN #0 tablet 02/09/17 Strength -] Levothyroxine [Synthroid -] 125 mcg PO DAILY #0 tab 02/09/17 Allopurinol [Zyloprim -] 300 mg PO DAILY 11/01/18 Oxycodone HCl/Acetaminophen 1 tab PO Q6H #20 tablet MDD 4 11/02/18 [Percocet 5-325 mg Tablet] Satellite Physical Exam - Physical Examination General Appearance: Well Nourished, Well Developed, Alert & Oriented x3 ENT: Clear Lung: Normal air movement Heart: Regular rate & rhythm Extremities: Other (right knee- + swelling, + ttp, decr rom, + mcmurrays, nvi, MRI + mmt,lmt, djd, loose body) Neurological: Intact, Alert, Oriented Satellite Impression/Plan - Impression/Plan Impression: right knee internal derangement Operative Procedure: right knee athroscopy Date to be Performed: 11/02/18
[2018-11-02] MEDS ORDERED: MIDAZOLAM HCL 2 MG/2 ML SINGLE DOSE VIAL ONE (09:18)
[2018-11-02] MEDS ORDERED: DEXAMETHASONE SOD PHOSPHATE 4 MG/1 ML VIAL ONE (09:48)
[2018-11-02] MEDS ORDERED: LIDOCAINE HCL/PF 2% SDV 5ML VIAL ONE (09:48)
[2018-11-02] MEDS ORDERED: BUPIVACAINE HCL/PF 0.5% (5MG/ML) 10 ML VIAL IJ ONE (09:56)
[2018-11-02] MEDS ORDERED: ceFAZolin SODIUM 1 GM VIAL ONE (10:08)
[2018-11-02] MEDS ORDERED: ceFAZolin SODIUM 1 GM VIAL IVPB ONE (10:10)
--- NOTE | 2018-11-02 10:31 | OP ---
Operative Note - Note: Operative Date: 11/02/18 Pre-Operative Diagnosis: internal derangement right knee Operation: arthroscopy right knee with MM and LM Post-Operative Diagnosis: Same as Pre-op Surgeon: Rocco Lagos Industrial Hygienist: Luis Roger Anesthesia: General Operative Report Dictated: Yes
[2018-11-02] MEDS ORDERED: LIDOCAINE 1%/EPI 1:100000 (20 ML MULTI DOSE VIAL) PNB ONE (10:36)
--- NOTE | 2018-11-02 12:15 | OP ---
DATE OF OPERATION: 11/02/2018 PREOPERATIVE DIAGNOSIS: Internal derangement, right knee. POSTOPERATIVE DIAGNOSIS: Internal derangement, right knee. PROCEDURE: Arthroscopy, right knee partial medial and lateral meniscectomies. SURGICAL ATTENDING: Rocco Lagos MD PHOTOGRAPHIC PLATE MAKER: Luis Roger MD ANESTHESIA: General with LMA. CLOSURE: 4-0 nylon. COMPLICATIONS: None. CONDITION: To recovery room in stable condition. DESCRIPTION OF OPERATIVE PROCEDURE: Patient was taken to the operating room on November 02, 2018. General anesthesia with LMA was administered by the anesthesiologist. Right lower extremity was prepped and draped in the usual sterile fashion. The medial and lateral infrapatellar portal sites were infiltrated with 1% Xylocaine with epinephrine. Both portals were then made with a 15-blade followed by blunt trocar. The scope was placed in the lateral infrapatellar portal and up into the suprapatellar pouch. The knee was then inflated with a cocktail of 10 mL of 1% Xylocaine, 10 mL of 0.5% Marcaine, and 20 mL of arthroscopic saline. Once the anesthetic was allowed to work on the knee, the procedure was performed. The undersurface of the patella and trochlea were visualized to be intact. The medial and lateral gutters were visualized to be intact. The medial compartment was entered. The medial meniscus was visualized and probed and found to have a complex tear of the posterior horn. This was debrided back to smooth, stable meniscal tissue with the meniscal biter and arthroscopic shaver. The medial femoral condyle was run and found to be basically intact. Some bleeders on the most peripheral aspect of the meniscus were cauterized using the ArthroCare device. At 90 degrees, the ACL was visualized, probed, and found to be intact. In the figure 4 position, the lateral compartment was entered. The lateral meniscus was found to have a complex tear of its mid portion propagating anteriorly. This was debrided back to smooth, stable meniscal tissues with a meniscal biter and arthroscopic shaver. Again any bleeders in the region were cauterized using the ArthroCare. There was a small loose body that was also found that was debrided using a grasper. The fluid was drained from the knee. The knee was then inflated with 20 mL of 0.5% Marcaine for postoperative analgesia. The portals were closed using 3-0 nylon suture. A sterile pressure dressing was applied. Patient was awakened from anesthesia and transferred to recovery in stable condition. No complications. Estimated blood loss negligible. Steph BAEZ/[id number]
[2018-11-02 13:58] VITALS: BP 116/70; PULSE 78; TEMP 98.5
[2018-11-02] MEDS ORDERED: ONDANSETRON 4 MG/2 ML VIAL IVPUSH PRN (15:21)
[2018-11-02] MEDS ORDERED: oxyCODONE HCL 5 MG TABLET PO PRN ×2 (15:21)
[2018-11-02] MEDS ORDERED: LACTATED RINGERS SOLUTION 1,000 ML IV SCH (15:30)
--- NOTE | 2018-11-04 17:17 | PATH ---
Surgical Pathology Report Patient Name: GENO BREWER Med. Rec. #: [id number] /Age/Gender: 1960 (Age: 58) / M Account: [id number] Location: [facility] Taken: 11/02/2018 Received: 11/02/2018 Reported: 11/04/2018 Physicians: Rocco Lagos M.D. Specimen(s) Received RIGHT KNEE SHAVINGS Clinical History Tear right knee Final Diagnosis KNEE SHAVINGS, RIGHT, ARTHROSCOPY, PARTIAL MEDIAL MENISCECTOMY: FRAGMENTS OF BENIGN FIBROSYNOVIAL TISSUE AND ADIPOSE TISSUE WITH MARKED CHRONIC INFLAMMATION AND LYMPHOPLASMACYTIC INFILTRATE. Comment: Immunohistochemical stains performed at [place], [place] ([id number]) and interpreted at [facility] show plasma cells within the chronic inflammatory infiltrate is positive for CD138 and polyclonal, consistent with a reactive process. Sidell and Lambda immunohistochemical stains utilized to evaluate this case. Electronically Signed Margoth Carvajal M.D. Gross Description Received in formalin, labeled "shavings right knee," is a 4.5 x 4.5 x 0.6 cm. aggregate of anguiano-yellow soft tissue fragments. A liability claims representative portion is submitted in one cassette. /11/02/201811/02/2018
== END 2018-11-02 13:30 | disposition home or self-care (01) ==
LOC: JASU-SURG 08:47
PROVIDERS: ATTEND Orthopaedic Surgery
PROC: 0SBC4ZZ Excision of Right Knee Joint, Percutaneous Endoscopic Approach (ICD-10-PCS; 2018-11-02)
PROC: 0SBC4ZZ Excision of Right Knee Joint, Percutaneous Endoscopic Approach (ICD-10-PCS; principal; 2018-11-02 10:30)
DX: S83.271A Complex tear of lateral meniscus, current injury, right knee, initial encounter (principal); S83.231A Complex tear of medial meniscus, current injury, right knee, initial encounter; X58.XXXA Exposure to other specified factors, initial encounter; Y93.9 Activity, unspecified; Y92.9 Unspecified place or not applicable; Y99.9 Unspecified external cause status
CPT/HCPCS: 88304-TC; 94760; 97116-GP

== ENCOUNTER 2018-11-16 07:55 | Day surgery (SDC) | payer OTHER ==
[2018-11-14 12:23] VITALS: BMI 32.5
[2018-11-16] MEDS ORDERED: LIDOCAINE HCL 1%, 10 MG/ML (20ML VIAL) ONE (08:37)
[2018-11-16] MEDS ORDERED: BUPIVACAINE HCL/PF 0.5% (5MG/ML) 10 ML VIAL ONE (08:37)
--- NOTE | 2018-11-16 09:38 | HP ---
Satellite H - Chief Complaint Chief Complaint: left knee pain - Past Medical History Allergies/Adverse Reactions: Allergies Allergy/AdvReac Type Severity Reaction Status Date / Time No Known Allergies Allergy Verified 11/14/18 12:27 Renal/: Yes: Other Heme/Onc: Yes: Thrombocytopenia - Current Medications Current Medications: Home Medications Medication Instructions Recorded Acetaminophen [Tylenol .Regular 650 mg PO Q6H PRN #0 tablet 02/09/17 Strength -] Levothyroxine [Synthroid -] 125 mcg PO DAILY #0 tab 02/09/17 Allopurinol [Zyloprim -] 300 mg PO DAILY 11/01/18 Oxycodone HCl/Acetaminophen 1 tab PO Q6H #20 tablet MDD 4 11/16/18 [Percocet 5-325 mg Tablet] Satellite Physical Exam - Physical Examination Vital Signs: Vital Signs Period Temp Pulse Resp BP Sys/Krueger Pulse Ox Last 24 Hr 98.3 F 70 18 122/76 98 General Appearance: Well Nourished, Well Developed, Alert & Oriented x3 ENT: Clear Lung: Normal air movement Heart: Regular rate & rhythm Extremities: Other (left knee- + swelling, + ttp, decr rom, + mcmurrays, nvi, MRI + mt) Neurological: Intact, Alert, Oriented Satellite Impression/Plan - Impression/Plan Impression: left knee internal derangement Operative Procedure: left knee arthroscopy Date to be Performed: 11/16/18
[2018-11-16] MEDS ORDERED: BUPIVACAINE HCL/PF 0.5% (5MG/ML) 10 ML VIAL IJ ONE (09:53)
[2018-11-16] MEDS ORDERED: LIDOCAINE HCL 1%, 10 MG/ML (20ML VIAL) INF ONE (09:53)
[2018-11-16] MEDS ORDERED: SODIUM CHLORIDE 0.9% P/F 10 ML VIAL IJ ONE (09:55)
[2018-11-16] MEDS ORDERED: PROPOFOL 20 ML ONE (09:55)
[2018-11-16] MEDS ORDERED: ceFAZolin SODIUM 1 GM VIAL ONE (09:55)
[2018-11-16] MEDS ORDERED: SUCCINYLCHOLINE CHLORIDE 200 MG/10 ML SYRINGE ONE (09:55)
[2018-11-16] MEDS ORDERED: LIDOCAINE HCL/PF 2% SDV 5ML VIAL ONE (09:55)
[2018-11-16] MEDS ORDERED: DEXAMETHASONE SOD PHOSPHATE 4 MG/1 ML VIAL ONE (09:55)
[2018-11-16] MEDS ORDERED: MIDAZOLAM HCL 2 MG/2 ML SINGLE DOSE VIAL ONE (09:55)
[2018-11-16] MEDS ORDERED: oxyCODONE HCL 5 MG TABLET PO PRN ×2 (10:09)
[2018-11-16] MEDS ORDERED: ONDANSETRON 4 MG/2 ML VIAL IVPUSH PRN (10:09)
[2018-11-16] MEDS ORDERED: KETOROLAC TROMETHAMINE 30 MG/1 ML VIAL ONE (10:14)
[2018-11-16] MEDS ORDERED: LACTATED RINGERS SOLUTION 1,000 ML IV SCH (10:15)
--- NOTE | 2018-11-16 10:38 | OP ---
Operative Note - Note: Operative Date: 11/16/18 ([facility]) Pre-Operative Diagnosis: left knee internal derangement Operation: left knee arthroscopy with PMM, aspiration of right knee Post-Operative Diagnosis: Same as Pre-op Surgeon: Luis Roger Anesthesiologist/DRIVER RETRAINING INSTRUCTOR: Mayte Charles Anesthesia: General, Local Specimens Removed: shavings Estimated Blood Loss (mls): 5 Operative Report Dictated: Yes
[2018-11-16 12:15] VITALS: TEMP 97.3
[2018-11-16 13:23] VITALS: BP 122/73; PULSE 71
--- NOTE | 2018-11-17 07:44 | OP ---
DATE OF OPERATION: 11/16/2018 PREOPERATIVE DIAGNOSIS: Internal derangement of the left knee. POSTOPERATIVE DIAGNOSIS: Internal derangement of the left knee. PROCEDURE: Left knee arthroscopy and partial medial meniscectomy. SURGICAL ATTENDING: Rocco Lagos MD DAY TRADER: Siddharth Roger MD ANESTHESIA: General with LMA. CLOSURE: Nylon 4-0. COMPLICATIONS: None. CONDITION: To recovery in stable condition. DESCRIPTION OF OPERATIVE PROCEDURE: Patient taken to the operating room on November 16, 2018. General anesthesia with LMA was administered by the anesthesiologist. Left lower extremity was prepped and draped in the usual sterile fashion. The medial and lateral infrapatellar portal sites were infiltrated with 1% Xylocaine with epinephrine. Both portals were then made with a 15 blade followed by a blunt trocar. The scope was placed in the lateral infrapatellar portal and up into the suprapatellar pouch. The knee was then inflated with a cocktail of 10 mL of 1% Xylocaine, 10 mL of 0.5% Marcaine and 20 mL of arthroscopic saline. After allowing the anesthetic to work inside the knee the procedure was performed. The pouch was visualized to be clean. The medial and lateral gutters were visualized to be clean. The undersurface of the patella and trochlea were visualized to be intact. With valgus stress on the knee the medial compartment was entered. Medial meniscus was visualized and probed and found to have a complex tear of its posterior horn. This was debrided back to smooth and stable meniscal tissues using a meniscal biter and arthroscopic shaver. The medial femoral condyle was run and found to be intact as was the medial tibial plateau. At 90 degrees the ACL was visualized and probed and found to be intact. In the figure 4 position the lateral compartment was entered. Lateral meniscus visualized, probed, found to be intact. Lateral femoral condyle was run and found to be intact as was the lateral tibial plateau. The knee was irrigated out with copious amounts of irrigation. The fluid was drained. Portals were closed using 4-0 nylon. Prior to pulling the trocar 20 mL of 0.5% Marcaine was infused through the outflow portal for postoperative analgesia. A sterile pressure dressing was placed over the knee. Patient awakened from anesthesia. Prior to the procedure we had noted that the right knee where the patient had an arthroscopy a few weeks before still had an effusion inside the knee. Under sterile conditions the right knee was aspirated which revealed 35 mL of blood-tinged clear fluid. The knee was then wrapped with an Cristhian bandage as well. SIDDHARTH ROGER M.D. CHARLIE/[id number]
--- NOTE | 2018-11-18 18:25 | PATH ---
Surgical Pathology Report Patient Name: GENO BREWER [facility]. Rec. #: [id number] /Age/Gender: 1960 (Age: 58) / M Account: [id number] Location: [facility] Taken: 11/16/2018 Received: 11/16/2018 Reported: 11/18/2018 Physicians: Rocco Lagos M.D. Specimen(s) Received SHAVINGS LEFT KNEE Clinical History Left knee tear Final Diagnosis LEFT KNEE SHAVINGS: FIBROSYNOVIAL TISSUE WITH PROMINENT LYMPHOPLASMACYTIC (CHRONIC) INFLAMMATORY INFILTRATE AND REACTIVE SYNOVIAL HYPERPLASIA. SEE COMMENT. FOCAL CHONDROCALCINOSIS PRESENT. Comments: Although these findings are nonspecific, dense lymphoplasmacytic infiltrate involving synovium with reactive synovial hyperplasia may be seen in association with rheumatoid arthritis. Correlation with clinical/ radiologic and serologic findings is suggested. Electronically Signed Deven Cooper M.D. Gross Description Received in formalin, labeled "shavings left knee," is a 4.8 x 4.0 x 0.5 cm. aggregate of anguiano-yellow soft tissue fragments. A account executive sales representative portion is submitted in one cassette. /11/17/2018 saudi11/17/2018
== END 2018-11-16 13:00 | disposition home or self-care (01) ==
LOC: JASU-SURG 07:55
PROVIDERS: ATTEND Orthopaedic Surgery
PROC: 0SBD4ZZ Excision of Left Knee Joint, Percutaneous Endoscopic Approach (ICD-10-PCS; principal; 2018-11-16 09:30)
DX: M23.304 Other meniscus derangements, unspecified medial meniscus, left knee (principal)
CPT/HCPCS: 36415; 84460; 86803; 87340; 87389; 88304-TC; 94760

== ENCOUNTER 2020-06-25 13:30 | Emergency (ER) | payer OTHER | END 2020-06-25 13:40 | disposition home or self-care (01) | LOC: JVIRT 13:30 | DX: Z20.822 Contact with and (suspected) exposure to COVID-19 (principal) | CPT/HCPCS: C9803; G2012-GT; U0003 ==